=== PATIENT | male | born 1995 | race Caucasian/White ===

== ENCOUNTER 2019-03-18 03:43 | Emergency (ER) | payer SELFPAY ==
[~2019-03-18] VITALS: Ht 175.3 cm; Wt 69.9 kg
[2019-03-18 03:55] VITALS: BP 130/78
--- NOTE | 2019-03-18 03:55 | NUR ---
TO BED # 03 AMBULATORY
--- NOTE | 2019-03-18 04:15 | NUR ---
Jag downey in ED - 03/18/19 at 0451 by LUBNA PT HAS 3CM LAC ON FOREHEAD WITH SLIGHT BRUISING AROUND LAC, PT WOUND CLEANED
--- NOTE | 2019-03-18 04:16 | NUR ---
23 Y/O M PRESENTS TO ER FOR LACERATION TO FOREHEAD SINCE TODAY. PER PT HE SMOKED MARIJUANA AND BLACKED OUT FOR A FEW SECONDS AND HIT HIS HEAD FACE DOWN. DENIES N/V. FORHEAD AREA HAS ERYTHEMA, MILD SWELLING WITH A 3CM LACERATION. BLEEDING IS CONTROLLED. PAIN LEVEL TO FOREHEAD SITE 4/10, THROBBING. ALLERGIES: NKA. MED HX: NONE. HOB ELEVATED, BED IN LOWEST POSITION, BED RAIL UP X1. WAITING FOR ERMD TO EVALUATE PT.
--- NOTE | 2019-03-18 04:16 | NUR ---
PT WOUND IRRIGATED AND CLEANED WITH SALINE AND GAUZE 3X3
--- NOTE | 2019-03-18 05:10 | NUR ---
PT WOUND IRRIGATED FOR SECOND TIME UNDER DOC ORDER WITH NORMAL SALINE
--- NOTE | 2019-03-18 05:15 | NUR ---
PT GIVEN ICE PACK AND PLACED ON FOREHEAD TO REDUCE SWELLING OVER INJURY
--- NOTE | 2019-03-18 05:40 | NUR ---
PT LEAVING TO CT VIA W/C
[2019-03-18 06:25] VITALS: BP 121/67
--- NOTE | 2019-03-18 06:25 | NUR ---
Patient discharged with v/s stable. Written and verbal after care instructions given and explained. Pt instructed to keep area clean and dry. Patient alert, oriented and verbalized understanding of instructions. Ambulatory with steady gait. All questions addressed prior to discharge. ID band removed. Patient advised to follow up with PMD tomorrow for recheck. Rx of ACETAMINOPHEN 500MG given. Patient educated on indication of medication including possible reaction and side effects. Opportunity to ask questions provided and answered.
== END 2019-03-18 06:25 | disposition home or self-care (01) ==
LOC: MED 03:43
DX: S01.81XA Laceration without foreign body of other part of head, initial encounter (principal); W19.XXXA Unspecified fall, initial encounter; Y99.8 Other external cause status; Z90.49 Acquired absence of other specified parts of digestive tract
CPT/HCPCS: 70450; 99284